=== PATIENT | male | born 1985 | race Caucasian/White ===

== ENCOUNTER 2017-11-10 02:23 | Emergency (ER) | payer OTHER, BC ==
[2017-11-10 02:30] VITALS: BP 100/60; PULSE 74; TEMP 97.3; BMI 25.8
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
== END 2017-11-10 02:46 | disposition home or self-care (01) ==
LOC: FER 02:23
PROC: 2W3CX1Z Immobilization of Right Lower Arm using Splint (ICD-10-PCS; principal; 2017-11-10)
DX: S63.91XA Sprain of unspecified part of right wrist and hand, initial encounter (principal); Y35.891A Legal intervention involving other specified means, law enforcement official injured, initial encounter; Y93.89 Activity, other specified; Y92.89 Other specified places as the place of occurrence of the external cause; Y99.0 Civilian activity done for income or pay
CPT/HCPCS: 73130-TC-RT-FY; 99281-25

== ENCOUNTER 2020-05-23 13:57 | Emergency (ER) | payer BC, OTHER ==
[2020-05-23 14:18] VITALS: BP 119/72; PULSE 61; TEMP 99; BMI 25.9
[2020-05-23 14:56] LABS: HEMATOCRIT 45.5 % (35.4-49); HEMOGLOBIN 15.4 GM/dl (11.7-16.9); MCH 31.3 pg (25.7-33.7); MCHC 33.9 g/dl (32.0-35.9); MEAN CELL VOLUME 92.3 fl (80-96); MEAN PLT VOLUME 8.3 fl (7.5-11.1); PLATELET COUNT 209 K/MM3 (134-434); RBC 4.93 M/mm3 (4.00-5.60); RDW 12.2 % (11.9-15.9); WHITE BLOOD COUNT 6.7 K/mm3 (4.0-10.8)
[2020-05-23 15:11] LABS: ALBUMIN 4.2 g/dl (3.4-5.0); BILIRUBIN,TOTAL 0.6 mg/dl (0.2-1); CALCIUM 10.2 mg/dl (8.5-10); MAGNESIUM 1.9 mg/dL (1.8-2.4); POTASSIUM 4.3 mmol/L (3.5-5.1); TOT PROT 7.1 g/dl (6.4-8.2)
[2020-05-23] MEDS ORDERED: ACETAMINOPHEN 325 MG TABLET (FP) PO ONE (16:42)
[2020-05-23] MEDS ORDERED: ACETAMINOPHEN 325 MG TABLET (FP) ONE (16:49)
[2020-05-23] MEDS ORDERED: CIPROFLOXACIN 500 MG TABLET (RESTRICTED TO ID) PO ONE (17:11)
[2020-05-23] MEDS ORDERED: metroNIDAZOLE 250 MG TABLET PO ONE (17:11)
[2020-05-23] MEDS ORDERED: metroNIDAZOLE 250 MG TABLET ONE (17:15)
[2020-05-23] MEDS ORDERED: CIPROFLOXACIN 250 MG TABLET (RESTRICTED TO ID) PO ONE (17:16)
[2020-05-23 17:45] LABS: PLATELET ESTIMATE ADEQUATE
== END 2020-05-23 17:35 | disposition home or self-care (01) ==
LOC: FER 13:57
DX: K51.919 Ulcerative colitis, unspecified with unspecified complications (principal)
CPT/HCPCS: 36415; 74177-TC; 80053; 81003; 83605; 83690; 83735; 84100; 85025; 87045; 87046; 87177; 87209; 87804; 99285-25; C9803; Q9967; U0003; U0005